=== PATIENT | female | born 1980 | race Asian ===

== ENCOUNTER 2018-10-22 09:17 | Outpatient (CLI) | payer OTHER | END 2018-10-22 09:55 | disposition home or self-care (01) | LOC: LC 09:17 | PROVIDERS: ATTEND Obstetrics & Gynecology Gynecology | PROC: 4A1HXCZ Monitoring of Products of Conception, Cardiac Rate, External Approach (ICD-10-PCS; principal; 2018-10-22) | DX: Z34.93 Encounter for supervision of normal pregnancy, unspecified, third trimester (principal) | CPT/HCPCS: 59025 ==

== ENCOUNTER 2018-11-09 10:01 | Outpatient (CLI) | payer OTHER | END 2018-11-09 10:35 | disposition home or self-care (01) | LOC: LC 10:01 | PROVIDERS: ATTEND Student in an Organized Health Care Education/Training Program | PROC: 4A1HXCZ Monitoring of Products of Conception, Cardiac Rate, External Approach (ICD-10-PCS; principal; 2018-11-09) | DX: O09.523 Supervision of elderly multigravida, third trimester (principal); Z3A.39 39 weeks gestation of pregnancy | CPT/HCPCS: 59025 ==

== ENCOUNTER 2018-11-12 09:34 | Outpatient (CLI) | payer OTHER ==
--- NOTE | 2018-11-12 09:42 | Non Stress Test Report ---
Non Stress Test Datetime Report Generated by CPN: 11/12/2018 09:42 DEMOGRAPHIC EGA NST: 39.1 INDICATION Indication for Study: Ordered by Provider MONITORING Time on Monitor: 11/09/2018 10:11 Time off Monitor: 11/09/2018 10:32 NST Duration: 21 NST INTERVENTIONS NST Interventions: PO Hydration; Reposition Patient Physician Notified NST: A.[place], CNM BABY A: [id number] BABY A Movement : Present Contraction Frequency : 0 FHR Baseline : 140 Accelerations : 15X15 Decelerations : None Variability : Moderate 6-25bpm NST Review: Meets Criteria for Reactive NST NST Review and Verified By : BETTY HOLDER Results: Reactive NST REPORT Report Trigger: Send Report
--- NOTE | 2018-11-12 10:26 | Non Stress Test Report ---
Non Stress Test Datetime Report Generated by CPN: 11/12/2018 10:25 DEMOGRAPHIC EGA NST: 39.4 INDICATION Indication for Study: Ordered by Provider; Other Indication for Study (NST) Other: AMA VITAL SIGNS Temperature - NST: 97.9 Pulse - NST: 71 RESP - NST: 17 NBPSYS NST: 107 NBPDIA NST: 58 MONITORING Monitor Explained: Monitor Explained; Test Explained; Patient Verbalized Understanding Time on Monitor: 11/12/2018 09:43 Time off Monitor: 11/12/2018 10:09 NST Duration: 26 NST INTERVENTIONS NST Interventions: PO Hydration; Reposition Patient Physician Notified NST: N Torres CNM BABY A Movement : Present Contraction Frequency : irritability FHR Baseline : 140 Accelerations : 15X15 Decelerations : None Variability : Moderate 6-25bpm NST Review: Meets Criteria for Reactive NST NST Review and Verified By : Pamella Armstrong RN NST Results: Reactive NST REPORT Report Trigger: Send Report
== END 2018-11-12 10:14 | disposition home or self-care (01) ==
LOC: LC 09:34
PROVIDERS: ATTEND Obstetrics & Gynecology
PROC: 4A1HXCZ Monitoring of Products of Conception, Cardiac Rate, External Approach (ICD-10-PCS; principal; 2018-11-12)
DX: O09.523 Supervision of elderly multigravida, third trimester (principal); Z3A.39 39 weeks gestation of pregnancy
CPT/HCPCS: 59025

== ENCOUNTER 2018-11-19 09:25 | Outpatient (CLI) | payer OTHER ==
--- NOTE | 2018-11-19 11:34 | Non Stress Test Report ---
Non Stress Test Datetime Report Generated by CPN: 11/19/2018 11:34 DEMOGRAPHIC EGA NST: 40.4 INDICATION Indication for Study: Ordered by Provider MONITORING Monitor Explained: Monitor Explained; Test Explained; Patient Verbalized Understanding Time on Monitor: 11/19/2018 09:35 Time off Monitor: 11/19/2018 10:42 NST Duration: 67 NST INTERVENTIONS NST Interventions: PO Hydration; Reposition Patient; Vibroacoustic Stim NST Interventions Other: popcicle Physician Notified NST: Danielle Camacho CNM BABY A: [id number] BABY A Movement : Present Contraction Frequency : 7-9 FHR Baseline : 145 Accelerations : 15X15 Decelerations : None Variability : Moderate 6-25bpm NST Review: Does Not Meet Criteria for Reactive NST NST Review and Verified By : Denice Hill RN NST REPORT Report Trigger: Send Report
== END 2018-11-19 10:50 | disposition home or self-care (01) ==
LOC: LC 09:25
PROVIDERS: ATTEND Obstetrics & Gynecology Gynecology
PROC: 4A1HXCZ Monitoring of Products of Conception, Cardiac Rate, External Approach (ICD-10-PCS; principal; 2018-11-19)
DX: O48.0 Post-term pregnancy (principal); O09.523 Supervision of elderly multigravida, third trimester; Z3A.40 40 weeks gestation of pregnancy

== ENCOUNTER 2018-11-19 18:54 | Outpatient (CLI) | payer OTHER ==
[2018-11-19 19:18] LABS: APPEARANCE,URINE CLOUDY; BILIRUBIN,URINE NEGATIVE (NEGATIVE); COLOR,URINE YELLOW; GLUCOSE, URINE NEGATIVE (NEGATIVE); KETONES,URINE NEGATIVE (NEGATIVE); LEUKOCYTE ESTERASE,URINE LARGE (NEGATIVE); NITRITE,URINE NEGATIVE (NEGATIVE); PROTEIN,URINE NEGATIVE (NEGATIVE); URINE SPECIFIC GRAVITY 1.015; UROBILINOGEN,URINE NEGATIVE mg/dL (<2.0)
[2018-11-19 19:32] LABS: URINE AMPHETAMINES SCREEN NEGATIVE; URINE BARBITURATES SCREEN NEGATIVE; URINE BENZODIAZEPINES SCREEN NEGATIVE; URINE COCAINE SCREEN NEGATIVE; URINE METHADONE SCREEN NEGATIVE
[2018-11-19 19:40] LABS: URINE PHENCYCLIDINE SCREEN NEGATIVE
[2018-11-19 19:49] LABS: URINE MARIJUANA (THC) SCREEN UNCONFIRMED POSITIVE
== END 2018-11-19 21:00 | disposition home or self-care (01) ==
LOC: LC 18:54
PROVIDERS: ATTEND Obstetrics & Gynecology Gynecology
PROC: 4A1HXCZ Monitoring of Products of Conception, Cardiac Rate, External Approach (ICD-10-PCS; principal; 2018-11-19)
DX: O47.1 False labor at or after 37 completed weeks of gestation (principal); O09.523 Supervision of elderly multigravida, third trimester; Z3A.40 40 weeks gestation of pregnancy
CPT/HCPCS: 59025; 81005; 80307; G0480 ×2; 80349

== ENCOUNTER 2018-11-20 06:02 | Inpatient (IN) | payer OTHER ==
--- NOTE | 2018-11-20 06:29 | Admission Physical ---
Datetime Report Generated by CPN: 11/20/2018 06:28 CURRENT ADMISSION Chief Complaint: Uterine Contractions Indication for Induction: Not Applicable Admit Impression : Term, Intrauterine Admit Plan: Initiate Labor Protocol ALLERGIES Medication Allergies: No Medication Allergies: No Known Allergies (11/19/2018) Latex: No Latex Allergies OBSTETRICAL HISTORY : 2 Para: 0 Term: 0 : 0 SAB: 1 IAB: 0 Ectopic: 0 Livin Cesareans: 0 VBACs: 0 Multiple Births: 0 Gestational Diabetes: No Rh Sensitization: No Incompetent Cervix: No SUSHILA: No Infertility: Yes ART Treatment: No Uterine Anomaly: No IUGR: No Hx Previous C/S: No Macrosomia: No Hx Loss/Stillborn: No PIH: No Hx : No Placenta Previa/Abruption: No Depression/PP Depression: No PTL/PROM: No Post Hemorrhage: No Current Procedures: Ultrasound; NST Obstetrical History Comments: G-1 SAB @ 12 weeks G-2 current AMA, h/o infertility with stage 4 endometriosis, no fertility tx SEE RECORDS Alcohol: No Marijuana : No Cocaine: No Other Illicit Drugs: No Cigarettes: Former Smoker. 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 Heart Disease: No Hosp/Surgery: Yes Autoimmune Disorder: No Anesthetic Complications: No Kidney Disease: No Abnormal Pap Smear: Yes Neuro/Epilepsy: No Psychiatric Disorders: No Other Medical Diseases: No Hepatitis/Liver Disease: No Significant Family History: No Varicosities/Phlebitis: No Trauma/Violence : No Thyroid Dysfunction: No Medical History Comments: 2008 - Laproscopic surgery to remove large fibroids for treatment of endometriosis INFECTIOUS HISTORY Gonorrhea: No Genital Herpes: No Chlamydia: No Tuberculosis: No Syphilis: No Hepatitis: No HIV/AIDS Exposure: No Rash or Viral Illness: No HPV: Yes Infectious History Comments: 2011 - HPV diagnosed PHYSICAL EXAM General: Normal HEENT: Normal Neurologic: Normal Thyroid: Normal Heart: Normal Lungs: Normal Breast: Deferred Back: Normal Abdomen: Normal Genitourinary Exam: Normal Extremities: Normal DTRs: Normal Pelvic Type: Adequate FETUS A Admit Comment: expect PLANS FOR LABOR AND DELIVERY Labor and Delivery: None Pain Management: Epidural Feeding Preference: Breast Benefit of Breast Feed Discussed: Yes Circumcision: Yes INFORMED CONSENT Signature: with User ID: [email or web address]
[2018-11-20] MEDS: RINGERS SOLUTION,LACTATED 1,000 ML IV PRN ×3 (07:00→09:43)
[2018-11-20] MEDS ORDERED: OXYTOCIN/NORMAL SALINE 20 UNIT/1,000 ML RTUINJ ONE (07:02)
[2018-11-20] MEDS ORDERED: LIDOCAINE 1% INJ-PF (10 MG/ML) 30 ML SDV ONE (07:02)
[2018-11-20] MEDS ORDERED: MISOPROSTOL 0.2 MG TABLET ONE (07:02)
[2018-11-20] MEDS ORDERED: EPHEDRINE SULFATE INJ 50 MG/1 ML AMPULE ONE ×3 (07:08→14:47)
[2018-11-20] MEDS ORDERED: BUPIVACAINE HCL 0.25 % INJ/PF (2.5 MG/1 ML) 30 ML VIAL ONE (07:09)
[2018-11-20] MEDS ORDERED: LIDOCAINE 1.5%/EPINEPHRINE INJ-PF 30 ML SDV ONE (07:09)
[2018-11-20] MEDS ORDERED: FENTANYL/BUPIVACAINE/NS/PF 300 MCG/150 ML RTUINJ EPI ONE (07:09)
[2018-11-20] MEDS ORDERED: PENICILLIN G-K 5 MILLION UNIT VIAL ONE ×2 (07:12→10:56)
[2018-11-20 07:58] LABS: HEMATOCRIT 37.4 % (36.0-47.0); HEMOGLOBIN 12.9 g/dL (12.0-15.5); MEAN CORPUSCULAR HEMOGLOBIN 32.3 pg (27.0-33.4); MEAN CORPUSCULAR HGB CONC 34.6 g/dL (32.0-36.0); MEAN CORPUSCULAR VOLUME 93 fl (80-97); PLATELET COUNT 221 10^3/uL (150-450); RED CELL DISTRIBUTION WIDTH 14.6 % (11.5-14.0); WHITE BLOOD COUNT 22.5 10^3/uL (4.0-10.5)
[2018-11-20 08:26] LABS: ABSOLUTE LYMPHOCYTES# (MANUAL) 1.8 10^3/uL (0.5-4.7); ABSOLUTE MONOCYTES # (MANUAL) 0.9 10^3/uL (0.1-1.4); ABSOLUTE NEUTROPHILS# (MANUAL) 19.8 10^3/uL (1.7-8.2); BAND NEUTROPHILS % (MANUAL) 2 % (3-5); BASOPHILS % (MANUAL) 0 % (0-2); EOSINOPHILS % (MANUAL) 0 % (0-6); LYMPHOCYTES % (MANUAL) 8 % (13-45); MONOCYTES % (MANUAL) 4 % (3-13); SEGMENTED NEUTROPHILS % (MAN) 86 % (42-78); TOTAL CELLS COUNTED 100
[2018-11-20 08:27] LABS: ANISOCYTOSIS SLIGHT; OVALOCYTES SLIGHT; PLATELET COMMENT ADEQUATE; POIKILOCYTOSIS SLIGHT; TEAR DROP CELLS SLIGHT; TOXIC GRANULATION 2+
[2018-11-20] MEDS ORDERED: OXYTOCIN/NORMAL SALINE 20 UNIT/1,000 ML RTUINJ IV PRN ×2 (09:18→09:30)
[2018-11-20] MEDS ORDERED: DEXTROSE 5%-LACTATED RINGERS 1,000 ML IV PRN (10:39)
[2018-11-20] MEDS ORDERED: ONDANSETRON HCL INJ/PF 4 MG/2 ML SDV ONE (11:35)
[2018-11-20] MEDS ORDERED: KETOROLAC TROMETHAMINE 60 MG/2 ML SDV ONE (11:35)
[2018-11-20] MEDS ORDERED: DEXAMETHASONE SOD PHOSPHATE INJ 4 MG/1 ML VIAL ONE (11:35)
[2018-11-20] MEDS ORDERED: LIDOCAINE 2% INJ-PF (20 MG/ML) 2 ML AMPUL ONE (11:35)
[2018-11-20] MEDS ORDERED: PHENYLEPHRINE HCL INJ/PF 10 MG/1 ML SDV ONE (11:35)
[2018-11-20] MEDS ORDERED: METOCLOPRAMIDE HCL INJ/PF 10 MG/2 ML SDV ONE (11:35)
[2018-11-20] MEDS ORDERED: MAG HYDROX/AL HYDROX/SIMETH SUSP 30 ML UDCUP PO ONE (11:43)
[2018-11-20] MEDS ORDERED: MAG HYDROX/AL HYDROX/SIMETH SUSP 30 ML UDCUP ONE (11:45)
[2018-11-20] MEDS ORDERED: DIPHENHYDRAMINE HCL 50 MG/ML VIAL ONE (12:50)
[2018-11-20] MEDS ORDERED: DIPHENHYDRAMINE HCL 50 MG/ML VIAL IV ONE (12:52)
[2018-11-20] MEDS ORDERED: CEFAZOLIN 2 GM/D5W RTU 2 GM/50 ML RTUPB IV ONE (14:03)
[2018-11-20] MEDS ORDERED: CITRIC ACID/SODIUM CITRATE ORAL SOLN 15 ML UDCUP ONE (14:03)
[2018-11-20] MEDS ORDERED: LIDOCAINE 2% INJ-PF (20 MG/ML) 10 ML AMPUL ONE ×2 (14:17→14:46)
[2018-11-20] MEDS ORDERED: OXYTOCIN 10 UNIT/ML VIAL ONE (14:46)
[2018-11-20] MEDS ORDERED: PROPOFOL INJ 200 MG/20 ML VIAL IV ONE (14:46)
[2018-11-20] MEDS ORDERED: MIDAZOLAM 2 MG/2 ML INJ ONE (14:46)
[2018-11-20] MEDS ORDERED: FENTANYL CITRATE INJ/PF 100 MCG/2 ML AMPUL ONE ×2 (14:46→16:42)
[2018-11-20] MEDS ORDERED: MEPERIDINE HCL/PF INJ 25 MG/1 ML DISP.SYRIN IV PRN (15:35)
[2018-11-20] MEDS ORDERED: PROMETHAZINE HCL INJ 25 MG/1 ML VIAL IV PRN ×3 (15:35→15:37)
[2018-11-20] MEDS ORDERED: FENTANYL CITRATE INJ/PF 100 MCG/2 ML AMPUL IV PRN ×3 (15:35)
[2018-11-20] MEDS ORDERED: MORPHINE SULFATE 10 MG/ML INJ IV PRN ×2 (15:35→15:37)
[2018-11-20] MEDS ORDERED: DIPHENHYDRAMINE HCL 50 MG/ML VIAL IV PRN (15:35)
[2018-11-20] MEDS ORDERED: ONDANSETRON HCL INJ/PF 4 MG/2 ML SDV IV PRN (15:35)
[2018-11-20] MEDS ORDERED: OXYCODONE-ACETAMINOPHEN 5-325 MG TABLET PO PRN (15:37)
[2018-11-20] MEDS ORDERED: ACETAMINOPHEN 325 MG TABLET PO PRN (15:37)
[2018-11-20] MEDS ORDERED: DIPH/PERTUSS(ACELL)/TETANUS VAC/PF 0.5 ML SYR (>=10YO) IM PRN (15:37)
[2018-11-20] MEDS ORDERED: MEASLES,MUMPS&RUBELLA VACC/PF 0.5 ML VIAL SUBCUT PRN (15:37)
[2018-11-20] MEDS ORDERED: RINGERS SOLUTION,LACTATED 1,000 ML IV PRN (15:37)
[2018-11-20] MEDS ORDERED: OXYTOCIN/NORMAL SALINE 1,000 ML IV PRN (15:37)
[2018-11-20] MEDS ORDERED: ACETAMINOPHEN 100 ML IV PRN (15:37)
[2018-11-20] MEDS ORDERED: SIMETHICONE 80 MG TAB.CHEW PO PRN (15:37)
[2018-11-20] MEDS ORDERED: ACETAMINOPHEN 1,000 MG/100 ML RTUPB IV ONE (15:39)
--- NOTE | 2018-11-20 17:48 | OPERATIVE REPORT E ---
Operative Report NAME: SHARMAINE SHAFFER : 1980 AGE: 38Y DATE OF SURGERY: 11/20/2018 ROOM: LR200 PREOPERATIVE DIAGNOSES: 1. Intrauterine (IUP) at 40 weeks and 4 days. 2. Nonreassuring heart tone. 3. Failure to progress. POSTOPERATIVE DIAGNOSES: 1. Intrauterine (IUP) at 40 weeks and 4 days. 2. Nonreassuring heart tone. 3. Failure to progress. PROCEDURE: Low transverse hysterotomy section. SURGEON: FREYA AGGARWAL M.D. ANESTHESIA: Ramez Mueller M.D. with an epidural. FINDINGS: Male in cephalic presentation with scores of 8 and 9. Thick meconium. COMPLICATIONS: None. ESTIMATED BLOOD LOSS: 650 mL. SPECIMENS REMOVED: Placenta. PROCEDURE IN DETAIL: The patient was taken to the operating room, prepared and draped in a normal sterile fashion in the supine position with a leftward tilt. A transverse skin incision was made with a scalpel and carried through to the underlying layer of fascia with the same scalpel. The fascia was excised in the midline, extended laterally with Alexis. The fascia was then dissected from the rectus muscles sharply with Alexis and the rectus muscle was divided, the peritoneal cavity was entered bluntly with good visualization of the bladder and the uterus. The bladder blade was inserted. The hysterotomy was nicked with a scalpel and extended laterally with surgeon finger fracture. The infant was then delivered atraumatically. The nose and mouth were suctioned with a suction bulb and the cord was clamped and cut, and the infant was handed off to awaiting operations examiner. Cord blood was collected. The placenta was removed manually. The uterus was exteriorized and cleared of clots and debris. The hysterotomy was closed with 0 Monocryl in a running, locked fashion. A second layer of the same suture was used to imbricate to ensure hemostasis. The uterus was returned to the abdomen. The peritoneal cavity was cleared of clots and debris. The rectus muscle and peritoneum were reapproximated with a mattress stitch of 2-0 chromic. The fascia was closed with 0 Vicryl. The subcutaneous layer was closed with plain catgut, and the skin was closed with 4-0 Vicryl. The patient tolerated the procedure well. Sponge, lap, and needle counts were correct x2. The patient was taken to recovery in stable condition. DICTATING PHYSICIAN: FREYA AGGARWAL M.D. [id number] PHY#: [id number] ID: [id number] JOB#: [id number] ACCT: [id number] cc:FREYA AGGARWAL M.D. >
--- NOTE | 2018-11-20 18:02 | Delivery Summary ---
Del Sum A-C Datetime Report Generated by CPN: 11/20/2018 18:01 DELIVERY PERSONNEL DELIVERY PERSONNEL: [id number] Delivery Doctor:: Marla Armas MD Anesthesiologist:: Ramez Mueller MD FRONT COUNTER ATTENDANT:: Frida Torres, FRONT COUNTER ATTENDANT Industrial Relations Counselor:: Inés Dan, RN Router Setter/ASSEMBLER DC FIELD YOKE: Mar Ragland, ST Router Setter/ASSEMBLER DC FIELD YOKE: Anna Palomino, WET SILK HANGER MATERNAL INFORMATION Delivery Anesthesia: Epidural Maternal Complications: None LABOR SUMMARY EDC: 11/15/2018 00:00 No. Babies in Womb: 1 Attempted: No LABOR INFORMATION Reason for Induction: Not Applicable Onset of Labor: 11/20/2018 06:30 Group B Beta Strep: Positive Antibiotics # of Doses: 2 Antibiotics Time of Last Dose: 1100 Name of Antibiotic Given: PCN Steroids Given: None Reason Steroids Not Administered: Not Applicable MEMBRANES Membranes Rupture Method: Spontaneous Rupture of Membranes: 11/20/2018 10:16 Length of Rupture (hr): 4.80 Amniotic Fluid Color: Moderate Meconium Amniotic Fluid Amount: Small Amniotic Fluid Odor: Normal STAGES OF LABOR Stage 3 hr: 0 Stage 3 min: 1 Total Time in Labor hr: 8 Total Time in Labor min: 35 CSECTION DELIVERY Primary Indication: Failure of Descent CSection Urgency: Non-Scheduled CSection Incidence: Primary Labor: Labor Elective: N/A CSection Incision: Lower Uterine Transverse BABY A INFORMATION Delivery Date/Time: 11/20/2018 15:04 Method of Delivery: Born in Route : No : N/A Forceps: N/A Vacuum Extraction: N/A Shoulder Dystocia : No PRESENTATION/POSITION BABY A Presentation: Cephalic Cephalic Presentation: Vertex Breech Presentation: N/A PLACENTA INFORMATION BABY A Placenta Delivery Time : 11/20/2018 15:05 Placenta Method of Delivery: Expressed Placenta Status: Delivered SCORES BABY A Heart Rate 1 min: >100 bpm Resp Effort 1 min: Good Cry Reflex Irritability 1 min: Cough or Sneeze or Pulls Away Muscle Tone 1 min: Active Motion Color 1 min: Blue/Pale SCORE 1 MIN: 8 Heart Rate 5 min: >100 bpm Resp Effort 5 min: Good Cry Reflex Irritability 5 min: Cough or Sneeze or Pulls Away Muscle Tone 5 min: Active Motion Color 5 min: Body Horine, Extremities Blue SCORE 5 MIN: 9 INFORMATION BABY A Infant Outcome : Liveborn Condition : Stable Sex: Male IDENTIFICATION BABY A Verification Date/Time: 11/20/2018 15:04 ID Band Number: [id number] Mother's Name Verified: Yes RN Verifying : Maude Dan RN/ Fela ESPOSITO RN WEIGHT/LENGTH BABY A Infant Birthweight (gm): 3585 Infant Weight (lb): 7 Infant Weight (oz): 14 Infant Length (in): 21.00 Length (cm): 53.34 CORD INFORMATION BABY A No. Cord Vessels: 3 Nuchal Cord : N/A Cord Blood Taken: Yes-For Storage (Mom's Blood type +) Infant Suction: None ASSESSMENT BABY A Complications: Extended Tachycardia; Multiple Late Decels; Meconium Physical Findings at Delivery: Within Normal Limits Respirations: Appears Normal Skin to Skin: Yes Veneer Layer/ALS Called : No Care By: Jaiden Wells RN Transferred To: Nursery
[2018-11-20] MEDS: OXYCODONE-ACETAMINOPHEN 5-325 MG TABLET PO PRN (18:51)
[2018-11-20] MEDS: KETOROLAC TROMETHAMINE INJ/PF 30 MG/1 ML SDV IV SCH (22:49)
[2018-11-21] MEDS: OXYCODONE-ACETAMINOPHEN 5-325 MG TABLET PO PRN ×2 (02:59→19:30)
[2018-11-21] MEDS: KETOROLAC TROMETHAMINE INJ/PF 30 MG/1 ML SDV IV SCH ×3 (05:01→22:05)
[2018-11-21 06:33] LABS: HEMATOCRIT 28.7 % (36.0-47.0); MEAN CORPUSCULAR HEMOGLOBIN 32.5 pg (27.0-33.4); MEAN CORPUSCULAR HGB CONC 35.1 g/dL (32.0-36.0); MEAN CORPUSCULAR VOLUME 93 fl (80-97); PLATELET COUNT 179 10^3/uL (150-450); RED BLOOD COUNT 3.09 10^6/uL (3.72-5.28); RED CELL DISTRIBUTION WIDTH 15.1 % (11.5-14.0); WHITE BLOOD COUNT 16.7 10^3/uL (4.0-10.5)
[2018-11-21] MEDS: IBUPROFEN 800 MG TABLET PO SCH ×4 (10:30→17:24)
[2018-11-21] MEDS: PRENATAL VITAMIN W DHA CAPSULE PO SCH (10:31)
[2018-11-21] MEDS: DOCUSATE SODIUM 100 MG CAPSULE PO SCH ×2 (10:31→17:24)
--- NOTE | 2018-11-21 11:00 | PDOC PROGRESS REPORT ---
Subjective-OB Progress Note for:: 11/21/18 Subjective: Pt doing well. No concerns. Reports light bleeding, reg diet and voiding without difficulty. Physical Exam (OB) Vital Signs: Temp Pulse Resp BP Pulse Ox 98.3 F 76 16 105/56 L 96 11/21/18 07:59 11/21/18 07:59 11/21/18 07:59 11/21/18 07:59 11/21/18 07:59 Intake & Output 11/20/18 11/21/18 11/22/18 06:59 06:59 06:59 Intake Total 1440 Balance 1440 Weight 71.5 kg - Dressing Removed: No Incision: Dressing - Lochia Lochia Amount: Small 10-25 ml Lochia Color: Rubra/Red - Abdomen Description: Soft, Round Fundal Description: Firm, Midline Fundal Height: u/u - u/2 Objective-Diagnostic Laboratory: 11/21/18 06:10 11/21/18 06:10 WBC 16.7 H RBC 3.09 L Hgb 10.0 L D Hct 28.7 L MCV 93 MCH 32.5 MCHC 35.1 RDW 15.1 H Plt Count 179 Assessment and Plan(PN) - Assessment and Plan (1) delivery delivered Is this a current diagnosis for this admission?: Yes (2) Failure to progress in labor, delivered, current hospitalization Is this a current diagnosis for this admission?: Yes - Time Spent with Patient Time with patient: Less than 15 minutes Medications reviewed and adjusted accordingly: Yes - Disposition Anticipated Discharge: Home Within: within 24 hours
[2018-11-22] MEDS: OXYCODONE-ACETAMINOPHEN 5-325 MG TABLET PO PRN (00:41)
[2018-11-22] MEDS: IBUPROFEN 800 MG TABLET PO SCH ×3 (00:54→11:19)
[2018-11-22] MEDS: KETOROLAC TROMETHAMINE INJ/PF 30 MG/1 ML SDV IV SCH (06:11)
[2018-11-22 08:12] VITALS: BP 118/75
--- NOTE | 2018-11-22 09:19 | PDOC DISCHARGE SUMMARY ---
Final Diagnosis Discharge Date: 11/22/18 - Final Diagnosis (1) delivery delivered Is this a current diagnosis for this admission?: Yes (2) Failure to progress in labor, delivered, current hospitalization Is this a current diagnosis for this admission?: Yes Discharge Data - Discharge Medication Prescriptions: Oxycodone HCl/Acetaminophen [Percocet 5-325 mg Tablet] 1 tab PO Q4HP PRN #30 tablet PRN Reason: Ibuprofen [Motrin 800 mg Tablet] 800 mg PO Q8HP PRN #60 tablet PRN Reason: Home Medications: Ibuprofen [Motrin 800 mg Tablet] 800 mg PO Q8HP PRN #60 tablet 11/22/18 Oxycodone HCl/Acetaminophen [Percocet 5-325 mg Tablet] 1 tab PO Q4HP PRN #30 tablet 11/22/18 Reason(s) for Admission: Onset of Labor Procedures: NST Intrapartum Procedure(s): : Low Cervical, Transverse - Diagnosis Test Laboratory: Temp Pulse Resp BP Pulse Ox 98.1 F 82 16 118/75 99 11/22/18 08:51 11/22/18 08:51 11/22/18 08:51 11/22/18 08:51 11/22/18 08:51 11/20/18 11/21/18 07:23 06:10 RBC 4.00 3.09 L Hgb 12.9 10.0 L D Hct 37.4 28.7 L - Discharge information/Instructions Discharge Activity: Activity As Tolerated, Balance Activity w/Rest, No Driving, No Lifting Over 10 Pounds, No Lifting/Push/Pulling, Pelvic Rest, No tub bath, Walk Frequently, Weigh Daily Discharge Diet: Regular Disposition: HOME, SELF-CARE Follow up with: [facility] in: 5, Days
[2018-11-22] MEDS: DOCUSATE SODIUM 100 MG CAPSULE PO SCH (10:10)
[2018-11-22] MEDS: PRENATAL VITAMIN W DHA CAPSULE PO SCH (10:10)
== END 2018-11-22 13:32 | disposition home or self-care (01) | DRG 788 ==
LOC: LC 06:02 → LR 06:27 → 2N 17:40
PROVIDERS: ADMIT Obstetrics & Gynecology; ATTEND Obstetrics & Gynecology
PROC: 10D00Z1 Extraction of Products of Conception, Low, Open Approach (ICD-10-PCS; principal; 2018-11-20)
DX: O76 Abnormality in fetal heart rate and rhythm complicating labor and delivery (principal); O99.824 Streptococcus B carrier state complicating childbirth; O62.0 Primary inadequate contractions; O77.0 Labor and delivery complicated by meconium in amniotic fluid; Z3A.40 40 weeks gestation of pregnancy; Z37.0 Single live birth
CPT/HCPCS: 1961; 36415; 85025; 85027; 86592; 86850; 86900; 86901; 88307; 94799; J0131; J0690; J1100; J1200; J1885; J2250; J2370; J2405; J2540; J2590; J2704; J2765; J3010; J3490